=== PATIENT | male | born 1980 | race Caucasian/White ===

== ENCOUNTER 2017-10-02 09:21 | Inpatient (IN) | payer SELFPAY ==
[2017-10-02] MEDS ORDERED: NS 0.9% 1000 ML* 1,000 ML IV ONE ×2 (09:47→10:05)
[2017-10-02] MEDS ORDERED: Morphine VIAL* 4 MG/ML VIAL (1 ml vial) IV ONE ×6 (10:09→15:26)
[2017-10-02] MEDS ORDERED: PROCHLORPERAZINE INJ 5 MG/ML 2 ML VIAL IV ONE (10:10)
[2017-10-02 10:29] LABS: ABS Basophils 0 10^3/ul (0-0.2); ABS Eosinophils 0 10^3/ul (0-0.6); ABS Lymphocytes 0.8 10^3/ul (1.0-4.8); ABS Monocytes 0.8 10^3/ul (0-0.8); ABS Neutrophils 19.5 10^3/ul (1.5-7.7); ABS Nucleated RBC 0 10^3/ul; Eosinophil % 0 % (0-6); Hematocrit 47 % (42-52); Lymphocyte % 3.9 % (25-47); Mean Corpuscular HGB Conc 34 g/dl (31-36); Mean Corpuscular Hemoglobin 29 pg (27-31); Mean Corpuscular Volume 85 fL (80-94); Nucleated Red Blood Cells % 0; Platelet Count 274 10^3/ul (150-450); Red Blood Count 5.48 10^6/ul (4.0-5.4); Red Cell Distribution Width 14 % (10.5-15); White Blood Count 21.2 10^3/ul (3.5-10.8)
[2017-10-02] MEDS ORDERED: cefTRIAXone(*) 1 GM in NS 0.9% 50 ML* 50 ML IVPB ONE (10:41)
[2017-10-02 10:49] LABS: EGFR Non-African American 75.3 (>60)
--- NOTE | 2017-10-02 11:02 | ED ---
Abdominal Pain/Male - HPI Summary HPI Summary: Patient here with right lower quadrant pain starting on Saturday. Just noticed this at some point throughout the day and got progressively worse. Seemed to be coming and going until this morning when the pain was unbearable which brought him here. He's had subjective fever since yesterday. Had an episode of nausea with vomiting last night. Last bowel movement was Saturday he denies history of constipation or diarrhea. He does admit he had some hesitation with urination yesterday however he was able to urinate - denies dysuria, burning, frequency, urgency, hematuria, flank pain. He does note that his right lower quadrant pain radiates down into his testicle. Denies penile lesions or discharge, testicular swelling or skin changes here. No history of kidney stones, urinary tract infection, STD, prostate infection, gastrointestinal infections or inflammation, hernia, surgery. 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 Drinks alcohol intermittently. Denies tobacco and illicit drug use. Family history pertinent for non-alcoholic cirrhosis and his father. This patient denies varicose veins, abdominal distention or fluid, hemorrhoids, hematochezia, melena, GERD. 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 Pain Intensity: 9 - Allergies/Home Medications Allergies/Adverse Reactions: Allergies Allergy/AdvReac Type Severity Reaction Status Date / Time No Known Allergies Allergy Verified 10/02/17 09:24 Home Medications: Home Medications NK [No Home Medications Reported] 10/02/17 [History Confirmed 10/02/17] PMH/Surg Hx/FS Hx/Imm Hx Previously Healthy: Yes Endocrine/Hematology History: Denies: Hx Anticoagulant Therapy, Hx Blood Disorders, Hx Diabetes, Autoimmune Disease Cardiovascular History: Denies: Hx Aneurysm GI History: Denies: Hx Cirrhosis, Hx Crohn's Disease, Hx Diverticulosis, Hx Gall Bladder Disease, Hx Gastroesophageal Reflux Disease, Hx Gastrointestinal Bleed, Hx Hiatal Hernia, Hx Irritable Bowel, Hx Obstructive Bowel, Hx Ulcer History: Denies: Hx Kidney Infection, Hx Kidney Stones, Hx Renal Disease Infectious Disease History: No Infectious Disease History: Denies: Traveled Outside the [place] in Last 30 Days - Family History Known Family History: Positive: Other - father - non alcoholic cirrhosis - Social History 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 Negative: Chills, Fatigue Eyes: Negative ENT: Negative Cardiovascular: Negative Negative: Palpitations, Chest Pain Respiratory: Negative Negative: Shortness Of Breath, Cough Positive: Abdominal Pain, Nausea. Negative: Vomiting, Diarrhea Positive: other - hesitation. Negative: burning, dysuria, discharge, frequency , flank pain, hematuria, incontinence, urgency Musculoskeletal: Negative Skin: Negative Neurological: Negative Psychological: Normal All Other Systems Reviewed And Are Negative: Yes Physical Exam Triage Information Reviewed: Yes Vital Signs On Initial Exam: Initial Vitals Temp Pulse Resp BP Pulse Ox 96.8 F 122 20 139/98 98 10/02/17 09:24 10/02/17 09:24 10/02/17 09:24 10/02/17 09:24 10/02/17 09:24 Vital Signs Reviewed: Yes Appearance: Positive: Well-Appearing, Well-Nourished, Pain Distress Skin: Positive: Warm, Skin Color Reflects Adequate Perfusion, Dry Head/Face: Positive: Normal Head/Face Inspection Eyes: Positive: Normal, EOMI, Conjunctiva Clear - anicteric sclera ENT: Positive: Normal ENT inspection, Hearing grossly normal, Pharynx normal - mucosa moist Neck: Positive: Supple Respiratory/Lung Sounds: Positive: Clear to Auscultation, Breath Sounds Present. Negative: Rales, Rhonchi, Wheezes Cardiovascular: Positive: Tachycardia, S1, S2. Negative: Murmur, Rub Abdomen Description: Positive: CVA Tenderness (R), Guarding, Other: - difficult to assess ab d/t gaurding - it seems like pain radiates to RLQ at times but to "all over" at times. Negative: CVA Tenderness (L) Male Genital Exam: Positive: No Hernia, Epididymal Tenderness - Rt - mild, Inguinal Tenderness - Rt. Negative: Bleeding, Lesions, Scrotum Tenderness (R), Scrotum Tenderness (L), Testicular Tenderness (R) - no masses palpated B/L, Testicular Tenderness (L), Urethral Discharge Musculoskeletal: Positive: Normal, Strength/ROM Intact Neurological: Positive: Normal, Sensory/Motor Intact, Alert, Oriented to Person Place, Time, CN Intact II-III Psychiatric: Positive: Normal - concerned but calm and cooperative Diagnostics - Vital Signs Vital Signs Temp Pulse Resp BP Pulse Ox 10/02/17 10:52 99.9 F 10/02/17 10:43 102 136/81 97 10/02/17 10:36 16 10/02/17 10:05 25 135/90 10/02/17 10:00 101 30 97 10/02/17 09:33 113 18 131/90 97 10/02/17 09:31 119 96 10/02/17 09:24 96.8 F 122 20 139/98 98 - Laboratory Lab Results: Lab Results 10/02/17 10/02/17 10/02/17 Range/Units 10:18 10:18 10:18 WBC 21.2 H (3.5-10.8) 10^3/ul RBC 5.48 H (4.0-5.4) 10^6/ul Hgb 16.0 (14.0-18.0) g/dl Hct 47 (42-52) % MCV 85 (80-94) fL MCH 29 (27-31) pg MCHC 34 (31-36) g/dl RDW 14 (10.5-15) % Plt Count 274 (150-450) 10^3/ul MPV 7.0 L (7.4-10.4) um3 Neut % (Auto) 92.2 H (38-83) % Lymph % (Auto) 3.9 L (25-47) % Nance % (Auto) 3.8 (0-7) % Eos % (Auto) 0 (0-6) % Baso % (Auto) 0.1 (0-2) % Absolute Neuts (auto) 19.5 H (1.5-7.7) 10^3/ul Absolute Lymphs (auto) 0.8 L (1.0-4.8) 10^3/ul Absolute Monos (auto) 0.8 (0-0.8) 10^3/ul Absolute Eos (auto) 0 (0-0.6) 10^3/ul Absolute Basos (auto) 0 (0-0.2) 10^3/ul Absolute Nucleated RBC 0 10^3/ul Nucleated RBC % 0 Sodium 130 L (139-145) mmol/L Potassium 3.6 (3.5-5.0) mmol/L Chloride 91 L (101-111) mmol/L Carbon Dioxide 27 (22-32) mmol/L Anion Gap 12 H (2-11) mmol/L BUN 14 (6-24) mg/dL Creatinine 1.10 (0.67-1.17) mg/dL Est GFR ( Amer) 96.9 (>60) Est GFR (Non-Af Amer) 75.3 (>60) BUN/Creatinine Ratio 12.7 (8-20) Glucose 128 H (70-100) mg/dL Lactic Acid 2.2 H* (0.5-2.0) mmol/L Calcium 9.9 (8.6-10.3) mg/dL Total Bilirubin 0.80 (0.2-1.0) mg/dL AST 22 (13-39) U/L ALT 37 (7-52) U/L Alkaline Phosphatase 116 H (34-104) U/L Troponin I Pending C-Reactive Protein 271.37 H (< 5.00) mg/L Total Protein 8.0 (6.4-8.9) g/dL Albumin 4.7 (3.2-5.2) g/dL Globulin 3.3 (2-4) g/dL Albumin/Globulin Ratio 1.4 (1-3) Lipase < 10 L (11.0-82.0) U/L Result Diagrams: 10/02/17 10:18 10/02/17 10:18 Lab Statement: Any lab studies that have been ordered have been reviewed, and results considered in the medical decision making process. Re-Evaluation - Re-Evaluation First Eval Change: Improved - pain improved but returned after 2 hours - 8mg morphine will be added Second Eval Change: Improved - pain improved - resting comfortably Abdominal Pain Fem Course/Dx - Course Course Of Treatment: Patient presents with patient presents with right lower quadrant pain that started 3 days ago. He reports subjective fever and urinary hesitation as of yesterday. Last BM Saturday. Nausea vomiting last night. His physical exam is positive for CVA tenderness and right sided pain without signs or symptoms of STD, testicular pain or injury, hernia, etc. However he is guarding throughout his abdominal exam. Initial thoughts were to rule out appendicitis as well as urinary tract stone, hernia, atypical diverticulitis, pyelonephritis and so labs were ordered along with 1 L of fluid. His initial tachycardia without fever and normal blood pressure were suspected to be from pain however when his labs returned with a WBC of 21, he met SIRS criteria and so protocol was implemented - fluids increased to 30cc/kg, ceftriaxone 1 g IV added as well as EKG (bpm 101, sinus, no ST elevations), chest x-ray (no acute findings) and blood cultures x 2 to be drawn. He is having difficulty providing a urine sample and reported hesitation w/ urination last night - may have stone obstructing? We will straight catheter him as needed. His temperature is currently afebrile however we will continue to monitor this as well. His pain is controlled with morphine and nausea controlled with Compazine. A gallbladder ultrasound was ordered once his alkaline phosphatase was found to be elevated. This report reveals gallbladder polyp - no acute findings. CT without contrast was ordered to identify a stone and with a BMI greater than 25, a hernia, diverticular disease, appendicitis should be visible. CT report reveals "dilated appendix with extensive periappendiceal inflammatory change consistent with acute appendicitis. There is no appreciable loculated fluid collection to suggest abscess, though sensitivity is limited due to lack of intravenous contrast". Discussed case with Dr. Koenig at 1400. Will add Flagyl 500 mg IV. Patient pending admission. - Diagnoses Provider Diagnoses: Appendicitis, Sepsis - Provider Notifications Discussed Care Of Patient With: Sajan Barnett Discharge - Sign-Out/Discharge Documenting (check all that apply): Discharge/Admit/Transfer - Discharge Plan Condition: Guarded Disposition: ADMITTED TO [facility] - Billing Disposition and Condition Condition: GUARDED Disposition: [facility] [place]
[2017-10-02] MEDS: NS 0.9% 1000 ML*IV.FLUID IV ONE ×3 (11:24→15:01)
--- NOTE | 2017-10-02 11:24 | RAD ---
INDICATION: Sepsis COMPARISON: None. TECHNIQUE: Single AP portable view of the chest was obtained. FINDINGS: Image quality is compromised due to the relative inferiority of a portable chest x-ray. The heart and mediastinum exhibit normal size and contour. The lungs are grossly clear. There is no evidence of a large pleural effusion. Visualized bones are normal for the patient's age. IMPRESSION: No radiographic evidence for acute cardiopulmonary abnormality on this portable chest x-ray.
--- NOTE | 2017-10-02 11:47 | RAD ---
INDICATION: Abdominal pain, elevated liver function tests. COMPARISON: There are no prior studies available for comparison. TECHNIQUE: Multiple real-time images of the right upper quadrant were obtained. FINDINGS: No gallstones are seen. There are gallbladder wall. The largest measures 6 x 4 mm in size. No gallbladder wall thickening or positive sonographic Montes sign is present. No intra or extrahepatic ductal distention is present. The common bile duct measured 0.2 cm in diameter. The liver is normal in size without significant focal abnormality. The pancreas is partially obscured by overlying bowel gas. The right kidney is normal in size without evidence for hydronephrosis. IMPRESSION: SMALL GALLBLADDER WALL POLYPS, OTHERWISE UNREMARKABLE STUDY.
[2017-10-02 12:19] LABS: INR 1.24 (0.77-1.02)
[2017-10-02 12:27] LABS: Urine Appearance Clear; Urine Blood 2+ (Negative); Urine Color Yellow; Urine Ketones Negative (Negative); Urine Protein Negative (Negative); Urine Specific Gravity 1.005 (1.010-1.030); Urine Urobilinogen Negative (Negative)
--- NOTE | 2017-10-02 13:13 | RAD ---
CLINICAL HISTORY: Right lower quadrant pain COMPARISON: None TECHNIQUE: Multiple contiguous axial CT scans were obtained of the abdomen and pelvis, without intravenous contrast enhancement. Coronal and sagittal multiplanar reformations are submitted for review. Oral contrast was administered. FINDINGS: The study is limited by the lack of intravenous contrast. This limits evaluation of the solid organs and vasculature. LUNG BASES: There is dependent atelectasis of the lung bases bilaterally. LIVER: The liver is normal in shape, size, contour, and attenuation. BILE DUCTS: There is no intrahepatic or extrahepatic biliary dilatation. GALLBLADDER: The gallbladder is normal, without pericholecystic inflammatory change. PANCREAS: The pancreas is normal, without mass or ductal dilatation. SPLEEN: Normal in size and appearance. UPPER GI TRACT: Evaluation of the gastrointestinal tract is limited by incomplete gastric distention. The upper GI tract is unremarkable. SMALL BOWEL AND MESENTERY: The small bowel is normal in contour, course, and caliber. There is no obstruction or dilatation. COLON: There is a tubular, performed, hollow viscus consistent with the appendix. This is dilated, measuring up to 1.3 cm in caliber. There is extensive stranding of the adjacent fat with fluid tracking along the right posterior pararenal fascia and lateroconal fascia. There is no loculated fluid collection to suggest abscess. ADRENALS: Normal bilaterally. KIDNEYS: The kidneys are normal in shape, size, contour, and axis. There is no hydronephrosis or nephrolithiasis. BLADDER: The bladder is smooth in contour. PELVIC ORGANS: The prostate gland is normal. The seminal vesicles are symmetric. AORTA: The aorta is normal. IVC: Unremarkable LYMPH NODES: There is no lymphadenopathy by size criteria. ABDOMINAL WALL: There is no evidence for abdominal wall hernia. BONES AND SOFT TISSUES: Unremarkable OTHER: None IMPRESSION: DILATED APPENDIX WITH EXTENSIVE PERIAPPENDICEAL INFLAMMATORY CHANGE CONSISTENT WITH ACUTE APPENDICITIS. THERE IS NO APPRECIABLE LOCULATED FLUID COLLECTION TO SUGGEST ABSCESS, THOUGH SENSITIVITY IS LIMITED DUE TO THE LACK OF INTRAVENOUS CONTRAST.
[2017-10-02] MEDS ORDERED: metroNIDAZOLE IV 500 MG/100ML* 500 MG/100 ML BAG IVPB ONE (14:10)
[2017-10-02] MEDS ORDERED: fentaNYL* 50 MCG/ML 2 ML VIAL (100 MCG VIAL) ONE (15:42)
[2017-10-02] MEDS ORDERED: Midazolam* 1 MG/ML 2 ML VIAL (2 MG) ONE (15:42)
[2017-10-02] MEDS ORDERED: Rocuronium* 10 MG/ML VIAL ONE ×2 (15:42→17:16)
[2017-10-02] MEDS ORDERED: Bupivacaine 0.25% SDV* 30 ML ONE (15:53)
[2017-10-02] MEDS ORDERED: Naloxone* 0.4 MG/ML 1 ML VIAL IV PRN (16:28)
[2017-10-02] MEDS ORDERED: Scopolamine 1.5 mg* PATCH TRANSDERM PRN (16:28)
[2017-10-02] MEDS ORDERED: Acetaminophen IV 1GM/100ML * 1,000 MG/100 ML VIAL IVPB ONE (16:28)
[2017-10-02] MEDS ORDERED: Levalbuterol 0.63MG/3ML NEB* UNIT OF USE INH PRN (16:28)
[2017-10-02] MEDS ORDERED: oxyCODONE TAB* 5 MG TAB PO PRN (16:28)
[2017-10-02] MEDS ORDERED: Ondansetron ODT TAB* 4 MG PO PRN (16:28)
[2017-10-02] MEDS ORDERED: Morphine INJ* 2 MG/ML 1 ML CARPUJECT IV PRN (16:28)
[2017-10-02] MEDS ORDERED: fentaNYL* 50 MCG/ML 2 ML VIAL (100 MCG VIAL) IV PRN (16:28)
[2017-10-02] MEDS ORDERED: Metoclopramide IV* 5 MG/ML 2 ML VIAL ONE (16:50)
[2017-10-02] MEDS ORDERED: Ketorolac INJ* 30 MG/ML 1 ML VIAL ONE (16:50)
[2017-10-02] MEDS ORDERED: Lidocaine 2% PF * 5 ML VIAL ONE (17:05)
[2017-10-02] MEDS ORDERED: Propofol* 10 MG/ML 20 ML BTL IV PUSH ONE (17:05)
[2017-10-02] MEDS ORDERED: Famotidine IV* 10 MG/ML 2 ML (20 mg) ONE (17:05)
[2017-10-02] MEDS ORDERED: HYDROmorphone INJ* 1 MG/ML CARPUJECT SYRINGE ONE (17:08)
[2017-10-02] MEDS ORDERED: Neostigmine Methylsulfate* 1 MG/ML 10 ML VIAL (1 mg/ml) ONE (18:05)
[2017-10-02] MEDS ORDERED: Glycopyrrolate IV* 0.2 MG/ML 1 ML VIAL ONE ×2 (18:05→18:07)
--- NOTE | 2017-10-02 18:26 | OP ---
Operative Report - Blank - Operative Report Date of Operation: 10/02/17 Note: Preop Dx: Acute appendicitis Postop Dx: same, ruptured Procedure: laparoscopic appendectomy Anesthesia: GET Surgeon: Arya Asst: DEBBY Diego Fluids: 1.5 L crystalloid EBL: < 100 ml Drains: 1 ELIO Specimen: appendix Findings: dictated
[2017-10-02] MEDS ORDERED: Piperacillin/Tazobac ADVAN(*) 3.375 GM in NS 0.9% 100 ML* 100 ML IVPB ONE ×2 (18:41→21:00)
[2017-10-02] MEDS ORDERED: Acetaminophen TAB* 325 MG PO PRN (18:42)
[2017-10-02] MEDS ORDERED: oxyCODONE/Acetamin 5/325 MG* TAB PO PRN ×2 (18:43→18:44)
[2017-10-02] MEDS ORDERED: HYDROmorphone INJ* 1 MG/ML CARPUJECT SYRINGE IV SLOW PU PRN (18:44)
[2017-10-02] MEDS ORDERED: Ondansetron ODT TAB* 4 MG SL PRN (18:45)
[2017-10-02] MEDS ORDERED: Zosyn per Pharmacy* NOTE FOLLOW UP SCH (19:00)
[2017-10-02] MEDS: D5W 1/2 NS 1000 ML BAG* 1,000 ML IV SCH (19:45)
--- NOTE | 2017-10-02 22:56 | HP ---
ADMISSION HISTORY AND PHYSICAL: DATE OF ADMISSION: 10/02/17 ATTENDING SURGEON: Dr. Shashank Koenig * (DICTATED BY DEBBY KOO) CHIEF COMPLAINT: Abdominal pain. HISTORY OF PRESENT ILLNESS: This is a generally healthy 36-year-old male who relates onset of generalized abdominal pain beginning Saturday night. He felt fine during the day on Saturday. Pain was central and associated with anorexia and vomiting multiple times. He also admits to fever but denies chills. He had a bowel movement on Saturday evening without change in his pain. No melena or bright red blood per rectum. He states that the pain continued through yesterday and last night and this morning had shifted to the right lower quadrant, at which time he presented to the emergency department. He denies any similar episodes in the past other than gas which was self-limited. He has not had any prior abdominal surgeries. PAST MEDICAL HISTORY: Unremarkable for any chronic or active medical problems. He is a former smoker. He denies history of heart disease, hypertension, diabetes, asthma, bleeding or blood clot disorders. He has not had any prior surgeries. PAST SURGICAL HISTORY: He has not had any prior surgeries. MEDICATIONS: None. DRUG ALLERGIES: None. FAMILY HISTORY: Negative for anesthesia problems, bleeding or clotting disorders. SOCIAL HISTORY: The patient is . 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 He quit smoking a few months ago and previously had smoked 1-pack per day. He denies use of alcohol or recreational drugs. REVIEW OF SYSTEMS: General: No recent constitutional symptoms or acute illnesses other than described in the HPI. Weight has been stable. Eyes: No recent changes. Ears, nose, throat: He does complain of some dryness of his throat, primarily from lack of oral intake (the last he had to eat or drink was Gatorade this morning around 8 a.m.). Cardiovascular: No chest pain, palpitations, history of heart murmur, or hypertension. Respiratory: No history of asthma or chronic cough. Smoking history is as noted. GI: As above per HPI. No additions. : No dysuria, hematuria, or increased frequency. Endocrine: No diabetes or thyroid dysfunction. Remainder of review of systems is normal. PHYSICAL EXAMINATION GENERAL: Well-nourished, well-developed male, in no acute distress but who appears uncomfortable. VITAL SIGNS: Height 5 feet 6 inches, weight 185 pounds by history, temperature 99.9, blood pressure 138/79, pulse 107, respirations 18, room air saturation 94% . HEENT: Pupils are equal, round, reactive. EOMs intact. No conjunctival pallor or scleral icterus. Oropharynx: He has full upper and partial lower dentures. Remaining teeth in good repair. Mucous membranes are dry. No intraoral lesions. NECK: No lymphadenopathy, thyromegaly, or masses. LUNGS: Clear to auscultation. No rales or wheezes. HEART: Tachycardiac. No murmur appreciated. ABDOMEN: Bowel sounds hypoactive. He appears distended. Abdomen is somewhat tympanitic and firm with guarding throughout. Tenderness is present throughout but with maximum point of tenderness in the right lower quadrant. No palpable masses or organomegaly. No palpable hernias. BACK: No spinous process tenderness, mild right CVA tenderness, none in the left. EXTREMITIES: No edema. NEUROLOGICAL: Grossly intact. SKIN: Warm and dry. No suspicious rashes or lesions. DIAGNOSTIC STUDIES/LAB DATA: Of note, white blood cell count 21,200, hemoglobin 16. There is a left shift on the differential. INR is mildly elevated at 1.24 , sodium is 130, lactic acid initially was 2.2 and then 1.4 on repeat. CRP is elevated at 271. Urinalysis is notable for specific gravity 1.005 and 2+ blood. CT scan without contrast was obtained, which shows an enlarged appendix with periappendiceal inflammatory changes. There is no definite evidence of fluid collection or abscess, though study is limited without IV contrast. IMPRESSION: Acute appendicitis with possible perforation based on physical exam and vital signs. PLAN: The patient was seen and examined by Dr. Koenig who concurs. Plan will be for admission with a plan for laparoscopic appendectomy. DEBBY KOO [id number]/CHERIE #: [id number] [facility]
[2017-10-03] MEDS: ZOSYN 3.375 GM Q8H per EXTENDED INFUSION IVPB SCH ×6 (01:48→16:39)
[2017-10-03] MEDS: D5W 1/2 NS 1000 ML BAG* 1,000 ML IV SCH (03:20)
[2017-10-03] MEDS: Ketorolac INJ* 30 MG/ML 1 ML VIAL IV PUSH PRN ×3 (03:25→16:03)
[2017-10-03] MEDS ORDERED: D5W 1/2 NS 1000 ML BAG* 1,000 ML IV SCH (09:20)
--- NOTE | 2017-10-03 10:48 | OP ---
DATE OF OPERATION: 10/02/17 - ROOM #331 DATE OF : 78. SURGEON: Shashank Koenig M.D. PIPE TURNER: DEBBY Palacio ANESTHESIA: General. PRE-OP DIAGNOSIS: Acute appendicitis. POST-OP DIAGNOSIS: Ruptured appendicitis with intraperitoneal abscesses. OPERATIVE PROCEDURE: Laparoscopic appendectomy and drainage of intra-abdominal abscesses. IV FLUIDS: 1500 cc of crystalloid fluid given. ESTIMATED BLOOD LOSS: Less than 100 cc. DRAINS: A #7 ELIO drain left at the abscess cavity. SPECIMEN: Appendix. DESCRIPTION OF PROCEDURE: The patient was identified in the preoperative area. His chart was reviewed. I agree with the diagnosis of acute appendicitis and recommended laparoscopic appendectomy. I outlined the details of the procedure going over the risks, benefits, and alternatives. The patient agreed and wanted to proceed with surgical intervention. We spoke of possible complications, which included, but not limited to bleeding, infection, injury to adjacent organs, need for open procedure, and possibility of drainage and abscess formation and need for additional procedures overall. The patient signed consent and was marked. He had received preoperative antibiotics, was taken to the operating room, placed on the operating table in supine position. The patient had already had antibiotics. Sequential devices were placed on bilateral lower extremities and general anesthesia was induced. The patient's abdomen was clipped of hair and the abdomen was prepped and draped in a standard surgical fashion. A time-out was performed. An infraumbilical incision was made. This was deepened down through the anterior fascia, which was elevated and incised, and we entered into the abdominal cavity through all the layers of the abdomen. No free fluid was identified. We did place a 12-mm trocar at the site and insufflated the abdomen to a pressure of 15 mmHg. The patient tolerated the insufflation well. Laparoscope was inserted through this and was very small amount of working space. The bowel was significantly dilated including what portions of the colon we could see. Mostly, we could see omentum. Additional trocars were then placed in the following positions: A 5-mm in the suprapubic area and 5-mm in the left lower quadrant. We saw murky fluid in the pelvis. This was suctioned off. As soon I made an attempt to lift the omentum superiorly, purulent drainage was encountered. This was suctioned off promptly. We were able to move the omentum with both blunt and sharp dissection off of the area what appeared to be the cecum, but there was a lot of small bowel obscuring this as well, and most of the omentum was attached to small bowel, which was involved in this abscess cavity. We did bluntly free the sigmoid colon off of the distal small bowel, and then we still had difficult time moving the small bowel superiorly to get a better view of what was likely going to be the appendix. Mostly, we did have an intra- loop abscess within the small bowel. The patient was placed in the Trendelenburg with right side up. We took attachments of the small bowel to the pelvic side wall down with sharp dissection and we were finally able to get the small bowel up and identify better the cecum. Blunt and sharp dissection was carried out along the right pericolic gutter and we were able to rotate cecum medially. It was then we saw a stool ball. This was removed with stone forceps and a second one also protruded through a hole in what appeared to be base of the appendix. We sharply dissected additional small bowel off of the tip of the appendix and as well we sharply dissected the ligament of Treitz. At this point, we did place a 5-mm trocar in the right upper quadrant to help retract the small bowel superiorly and get a better sense of this appendix. Next, we were able to get a window around the mesoappendix and a 45-mm thao-ZACHERY stapling device was fire to this, and now we can lift the appendix up and placed a staple at this edge. I did clean up the base of the appendix to ensure we are right at the cecum to healthy tissue and during this retraction, I did avulse the appendix all together at the area where it had already perforated open. This was then placed off to the side. We did ultimately fired 45-mm thao-ZACHERY stapling device across the healthy cecal tissue at the base taking care not to get near the terminal ileum. We then placed the stump of the appendix as well as the avulsed distal portion in an endoscopic retrieval bag and placed it over the liver. Next, we suctioned throughout the area as well as in the pelvis. Hemostasis was excellent. I did have to place two clips along some of the dissection laterally and some areas of what appeared to be branches of the mesoappendix. We did irrigate with out about 2 L of warm saline, suctioned over the liver again additional murky fluid. We placed a #7 ELIO drain into the area of the abscess cavity, which was right at the cecum and small bowel. Once we released retraction of this, it dropped back into the site. The ELIO drain was brought out through the suprapubic area. We removed the appendix through the umbilical port site with ease, passed off as a specimen, this is in the endoscopic retrieval bag. I then closed the anterior fascia at the site with a Weck device using 0 Polysorb sutures. I ended up placing a second 0 Polysorb suture to fully close the umbilical incision site at the anterior fascia. Wound was then irrigated. The abdomen was allowed to collapse. Trocars were removed under direct vision. The ELIO drain was stitching in with a 3-0 Surgipro suture and the other incisions were closed with 4-0 Monocryl subcuticular sutures followed by Steri-Strips and sterile dressing. The patient tolerated the procedure well. He was woken up in the OR and transferred to the PACU in stable condition. [id number]/[facility] #: [id number] [facility]
[2017-10-03] MEDS: Metoclopramide IV* 5 MG/ML 2 ML VIAL IV PRN ×2 (13:21→19:23)
[2017-10-03] MEDS: Omeprazole CAP* 20 MG PO SCH (16:38)
--- NOTE | 2017-10-03 16:38 | PN ---
Progress Note - Progress Note Date of Service: 10/03/17 SOAP: Subjective: Pt seen and examined. Feels hany than yesterday. No flatus Objective: af vss uo good a and ox3, nad abdo: distended, tender/ hypoactive bs Arsenio serous Assessment: pod1 lap appy, drainage of abscess Plan: continue renee clears only abx
[2017-10-03] MEDS ORDERED: Scopolamine 1.5 mg* PATCH TRANSDERM ONE (20:00)
[2017-10-03 22:05] LABS: Hematocrit 36 % (42-52); Hemoglobin 12.2 g/dl (14.0-18.0); Mean Corpuscular HGB Conc 34 g/dl (31-36); Mean Corpuscular Hemoglobin 29 pg (27-31); Mean Corpuscular Volume 85 fL (80-94); Mean Platelet Volume 6.8 um3 (7.4-10.4); Platelet Count 226 10^3/ul (150-450); Red Blood Count 4.28 10^6/ul (4.0-5.4); Red Cell Distribution Width 14 % (10.5-15); White Blood Count 13.9 10^3/ul (3.5-10.8)
[2017-10-03 22:20] LABS: EGFR Non-African American 92.6 (>60)
[2017-10-04] MEDS: ZOSYN 3.375 GM Q8H per EXTENDED INFUSION IVPB SCH ×6 (01:36→18:21)
[2017-10-04] MEDS: D5W 1/2 NS 1000 ML BAG* 1,000 ML IV SCH ×2 (01:44→08:08)
[2017-10-04 06:07] LABS: ABS Basophils 0 10^3/ul (0-0.2); ABS Eosinophils 0 10^3/ul (0-0.6); ABS Lymphocytes 0.7 10^3/ul (1.0-4.8); ABS Monocytes 0.5 10^3/ul (0-0.8); ABS Neutrophils 11.5 10^3/ul (1.5-7.7); ABS Nucleated RBC 0 10^3/ul; Eosinophil % 0.3 % (0-6); Hematocrit 35 % (42-52); Lymphocyte % 5.5 % (25-47); Mean Corpuscular HGB Conc 34 g/dl (31-36); Mean Corpuscular Hemoglobin 29 pg (27-31); Mean Corpuscular Volume 85 fL (80-94); Nucleated Red Blood Cells % 0; Platelet Count 227 10^3/ul (150-450); Red Blood Count 4.16 10^6/ul (4.0-5.4); Red Cell Distribution Width 14 % (10.5-15); White Blood Count 12.7 10^3/ul (3.5-10.8)
[2017-10-04] MEDS: Omeprazole CAP* 20 MG PO SCH ×2 (07:16→16:39)
--- NOTE | 2017-10-04 09:48 | PN ---
Progress Note - Progress Note Date of Service: 10/04/17 SOAP: Subjective: Pt seen and examined. Some flatus. N V, vomited while I was in room Objective: af vss uo good a and ox3, nad abdo: distended, tender/ hypoactive bs Arsenio serous labs reviewed Assessment: pod2 lap appy, drainage of abscess; ileus Plan: clears only abx d/c planning
[2017-10-04] MEDS ORDERED: KCL 20 MEQ/100 ML IVPREMIX* 20 MEQ/100 ML BAG IV ONE (09:49)
[2017-10-04] MEDS: D5W 1/2 NS KCl 20 Meq 1000 ML* 1,000 ML IV SCH ×2 (10:21→23:03)
[2017-10-04] MEDS: KCL premix 10MEQ/50 ML x 2 BAGS IV SCH ×2 (12:08→15:25)
[2017-10-05] MEDS: ZOSYN 3.375 GM Q8H per EXTENDED INFUSION IVPB SCH ×4 (00:53→09:08)
[2017-10-05] MEDS: Omeprazole CAP* 20 MG PO SCH (07:17)
[2017-10-05 11:52] VITALS: BP 137/73
[2017-10-05] MEDS ORDERED: Scopolamine PATCH Remove* 1 NOTE MISC PATCH OFF ONE (16:29)
--- NOTE | 2017-10-05 21:46 | DS ---
DISCHARGE SUMMARY: DATE OF ADMISSION: 10/03/17 DATE OF DISCHARGE: 10/05/17 HISTORY OF PRESENT ILLNESS: Mr. Tillman is a 36-year-old gentleman who presented to [facility] emergency room with complaints of abdominal pain who was worked up in the ER and noted to have acute appendicitis. The patient was toxic at arrival and was treated urgently with antibiotics, taken to the operating room and underwent a laparoscopic appendectomy and drainage of intra-abdominal abscesses. Please see operative report for separate details. POSTOPERATIVE COURSE: The patient was transferred to the PACU and then onto the short stay surgical unit. He suffered with ileus that improved over the course of a couple of days. He was kept on IV antibiotics and never did spike fever after surgery. The patient was up and ambulating and improved by postoperative day 3 and was ready for discharge. On the day of discharge, the patient was examined and he was afebrile. Vital signs are stable. Negative I's and O's. Alert and oriented x3, in no apparent distress. Head, eyes, ears, nose and throat: Normocephalic, atraumatic. Sclerae anicteric. Mucous membranes are moist. Lungs: Clear to auscultation bilaterally. Abdomen: Soft, distended, nontender. Hypoactive bowel sounds. ELIO drain with serous output, this was removed. Extremities within normal limits. IMPRESSION: Postoperative day 3 from laparoscopic appendectomy and drainage of abscesses. Pathology consistent with acute suppurative appendicitis with perforation. The patient will be discharged home on oral antibiotics for 7 days of Augmentin and follow up in our office in the middle of next week. The patient is aware of this and his questions were answered. He will advance his diet to solids by tomorrow evening. [id number]/[facility] #: [id number] [facility]
[2017-10-06] MEDS ORDERED: Scopolamine PATCH Remove* 1 NOTE MISC PATCH OFF ONE (20:00)
== END 2017-10-05 14:00 | disposition home or self-care (01) | DRG 339 ==
LOC: ED 09:21 → OR 15:49 → SSU 18:35 → OBSVTOIN 10-03 10:00
PROVIDERS: ADMIT Surgery; ATTEND Surgery
PROC: 0DTJ4ZZ Resection of Appendix, Percutaneous Endoscopic Approach (ICD-10-PCS; principal; 2017-10-02 15:00)
DX: K35.2 Acute appendicitis with generalized peritonitis (principal); K56.7 Ileus, unspecified; Z87.891 Personal history of nicotine dependence
CPT/HCPCS: 36415; 71045; 74176; 76705; 80048; 80053; 81003; 81015; 83605; 83690; 84484; 85025; 85027; 85610; 85730; 86140; 87040; 87086; 87491; 87591; 88304; 93005; 99284; A9270-GY; C1776; G0378; J0696; J0780; J1170; J1885; J2250; J2270; J2543; J2704; J2710; J2765; J3010; J3480; J3490

== ENCOUNTER 2019-01-21 16:33 | Emergency (ER) | payer SELFPAY ==
[2019-01-21 16:42] VITALS: BP 145/87
--- NOTE | 2019-01-21 16:53 | UC ---
Throat Pain/Nasal Edi HPI - HPI Summary HPI Summary: 38-year-old male presents with 5 day history of severe nasal congestion, and his pressure, and runny nose. States 3 days ago started developing a harsh, dry , nonproductive cough that has continued to worsen. Symptoms associated with wheezing. Patient states he has been taking Mucinex DM with some improvement in the nasal congestion. Patient is a smoker. Denies fever, chills, ear pain, sore throat, chest pain, or shortness of breath. - History of Current Complaint Chief Complaint: UCRespiratory Stated Complaint: URI Time Seen by Provider: 01/21/19 16:49 Hx Obtained From: Patient Pain Intensity: 0 - Allergies/Home Medications Allergies/Adverse Reactions: Allergies Allergy/AdvReac Type Severity Reaction Status Date / Time No Known Allergies Allergy Verified 01/21/19 16:42 PMH/Surg Hx/FS Hx/Imm Hx Previously Healthy: Yes - Denies significant PMH Respiratory History: Bronchitis Other History Of: Negative For: Anticoagulant Therapy - Surgical History Surgical History: Yes Surgery Procedure, Year, and Place: 10/02/17 S/P Lap Appendectomy - Family History Known Family History: Positive: Other - father - non alcoholic cirrhosis - Social History Occupation: Employed Full-time Lives: With Family Alcohol Use: Rare Substance Use Type: None Smoking Status (MU): Current Some Day Smoker - Immunization History Most Recent Influenza Vaccination: Never Most Recent Pneumonia Vaccination: never Review of Systems All Other Systems Reviewed And Are Negative: Yes Constitutional: Negative: Fever, Chills Skin: Negative: Rash Eyes: Negative: Drainage, Eye Redness ENT: Positive: Nasal Discharge, Sinus Congestion, Sinus Pain/Tenderness. Negative: Sore Throat, Ear Ache Respiratory: Positive: Cough, Other - Wheezing. Negative: Shortness Of Breath Cardiovascular: Negative: Palpitations, Chest Pain Gastrointestinal: Negative: Abdominal Pain, Vomiting, Nausea Genitourinary: Positive: Negative Musculoskeletal: Positive: Negative Neurological: Positive: Negative Is Patient Immunocompromised?: No Physical Exam - Summary Physical Exam Summary: GENERAL APPEARANCE: Well developed, well nourished, alert and cooperative, and appears to be in no acute distress. EYES: Conjunctiva clear. No drainage. EARS: External auditory canals and tympanic membranes clear, hearing grossly intact. NOSE: Moderate nasal congestion. Clear nasal discharge. THROAT: Mild pharygeal erythema. No tonsilar inflammation, swelling, exudate, or lesions. Uvula midline. NECK: Neck supple, non-tender without lymphadenopathy. CARDIAC: Normal S1 and S2. No S3, S4 or murmurs. Rhythm is regular. There is no peripheral edema, cyanosis or pallor. Extremities are warm and well perfused. Capillary refill is less than 2 seconds. Peripheral pulses intact. LUNGS: Diffuse bilateral wheezing. Dry, bronchospastic cough. ABDOMEN: Positive bowel sounds. Soft, nondistended, nontender. No guarding or rebound. No masses or hepatosplenomegally. MUSKULOSKELETAL: ROM intact to all extremities. No joint erythema or tenderness. Normal muscular development. Normal gait. SKIN: Skin normal color, texture and turgor with no lesions or eruptions. Triage Information Reviewed: Yes Vital Signs: Initial Vital Signs Temp 97.4 F 01/21/19 16:36 Pulse 90 01/21/19 16:36 Resp 20 01/21/19 16:36 BP 145/87 01/21/19 16:36 Pulse Ox 97 01/21/19 16:36 Vital Signs Reviewed: Yes Re-Evaluation - Re-Evaluation First Eval Re-Evaluation Time: 17:45 Change: Improved Comment: Patient reports cough much improved after albuterol nebulizer. Bilateral breath sounds clear with improved air exchange. Throat Pain/Nasal Course/Dx - Course Course Of Treatment: 38-year-old male presents with 5 day history of severe nasal congestion, and his pressure, and runny nose. States 3 days ago started developing a harsh, dry , nonproductive cough that has continued to worsen. Symptoms associated with wheezing. Patient states he has been taking Mucinex DM with some improvement in the nasal congestion. Patient is a smoker. Denies fever, chills, ear pain, sore throat, chest pain, or shortness of breath. Afebrile. Hypertensive of his vital signs stable. Patient had moderate nasal congestion, clear nasal discharge, mild pharyngeal erythema without tonsillar swelling or exudate, diffuse bilateral wheezing, a dry, bronchospastic cough, and otherwise unremarkable exam. Patient was given an albuterol nebulizer treatment in the clinic and reported improvement in his cough. After the nebulizer treatment he had clear bilateral breath sounds with improved air exchange. Discussed with the patient that I suspect that he has a viral bronchitis versus URI with reactive airway disease. Will place him on prednisone 50 mg daily 5 days, provide him with an albuterol inhaler 2 puffs every 4-6 hours as needed for shortness of breath and wheezing, and Tessalon Perles 100 mg one capsule every 8 hours as needed for cough. Patient is to return here or follow up with primary care in 3-5 days especially if symptoms are not improving. Anticipatory guidance and warning symptoms were reviewed with the patient. Verbalizes understanding and agrees with plan of care. - Differential Dx/Diagnosis Differential Diagnosis/HQI/PQRI: Influenza, Pharyngitis, Sinusitis, Tonsillitis , URI Provider Diagnosis: Acute bronchitis, Reactive airway disease that is not asthma Discharge ED - Sign-Out/Discharge Documenting (check all that apply): Patient Departure All imaging exams completed and their final reports reviewed: No Studies - Discharge Plan Condition: Stable Disposition: HOME Prescriptions: Albuterol HFA INHALER* [Ventolin HFA Inhaler*] 2 puff INH Q4H PRN #1 mdi PRN Reason: Sob/Wheezing Benzonatate CAP* [Tessalon 100 MG CAP*] 100 mg PO TID PRN #21 cap PRN Reason: Cough predniSONE TAB* [Deltasone TAB*] 50 mg PO DAILY #5 tab Patient Education Materials: Upper Respiratory Infection (ED) Referrals: No Primary Care Phys,NOPCP [Primary Care Provider] - Additional Instructions: Your history and exam are consistent with acute bronchitis with reactive airway disease (wheezing). Bronchitis is most often caused by a viral infection. Viral infections do not respond to antibiotics and are limited to the treatment of symptoms. Viral infections typically run their course in 7-10 days. Start prednisone 50 mg 1 tablet daily for 5 days to help reduce inflammation in the airways. Use albuterol inhaler 2 puffs every 4-6 hours as needed for shortness of breath , wheezing, or coughing fits. Take Tessalon Perles 1 capsule every 8 hours as needed for cough. Get plenty of rest. Drink plenty of fluids. Run a cool mist humidifer in your room at night. Take over the counter acetaminophen (Tylenol) or ibuprofen (Advil, Motrin) according to directions as needed for pain or fever. Use an over the counter decongestant such as Sudafed according to directions to help with the nasal congestion. Return here or follow up with your primary care provider in 3-5 days if symptoms do not improve. Seek immediate medical attention in the emergency room if you have fever greater than 100.5 F despite taking acetaminophen or ibuprofen, have chest pain , difficulty breathing, or have any worsening of symptoms. - Billing Disposition and Condition Condition: STABLE Disposition: Home
[2019-01-21] MEDS: Albuterol 2.5 MG/3 ML NEB.SOL* (0.083%) INH ONE (17:17)
== END 2019-01-21 18:00 | disposition home or self-care (01) ==
LOC: UCEAST 16:33
DX: J40 Bronchitis, not specified as acute or chronic (principal); F17.210 Nicotine dependence, cigarettes, uncomplicated
CPT/HCPCS: 99212; G0463